=== PATIENT | female | born 1965 | race Two or more races ===

== ENCOUNTER 2018-05-15 09:17 | Emergency (ER) | payer MEDICAID ==
[~2018-05-15] VITALS: Ht 165.1 cm; Wt 53.5 kg
[~2018-05-15 09:17] MED LIST: HYDR-3974 PO; MELO15TA13 PO; PRED50TA PO
[2018-05-15 09:31] VITALS: BP 143/90
[2018-05-15] MEDS ORDERED: HYDROCODONE/APAP 5/325MG 1 EACH TABLET PO ONE (10:30)
[2018-05-15] MEDS ORDERED: HYDROCODONE/APAP 5/325MG 1 EACH TABLET ONE (10:30)
--- NOTE | 2018-05-15 12:39 | NUR ---
Pt eloped prior to discharge instructions
== END 2018-05-15 12:39 | disposition home or self-care (01) ==
LOC: ER 09:19
DX: G89.29 Other chronic pain (principal); M54.2 Cervicalgia; M54.9 Dorsalgia, unspecified; F17.200 Nicotine dependence, unspecified, uncomplicated; Z85.3 Personal history of malignant neoplasm of breast; Z86.19 Personal history of other infectious and parasitic diseases; Z90.710 Acquired absence of both cervix and uterus; Z88.6 Allergy status to analgesic agent; W18.09XA Striking against other object with subsequent fall, initial encounter; Y93.89 Activity, other specified; Y92.89 Other specified places as the place of occurrence of the external cause; Y99.8 Other external cause status
CPT/HCPCS: 99282; A4606; Z7610